=== PATIENT | female | born 1990 | race African-American/Black ===

== ENCOUNTER 2017-05-01 17:17 | Emergency (ER) | payer OTHER ==
[~2017-05-01] VITALS: Ht 172.7 cm; Wt 78.9 kg
[2017-05-01 17:42] VITALS: BP 116/69
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
[2017-05-01] MEDS ORDERED: CYCL10TA2 PO (18:52)
[2017-05-01] MEDS ORDERED: NAPR500T8 PO (18:52)
[2017-05-01] MEDS ORDERED: IBUPROFEN 600 MG TABLET. PO ONE (19:15)
== END 2017-05-01 19:07 | disposition home or self-care (01) ==
LOC: ER 17:17
DX: S16.1XXA Strain of muscle, fascia and tendon at neck level, initial encounter (principal); V43.52XA Car driver injured in collision with other type car in traffic accident, initial encounter; Y93.I9 Activity, other involving external motion; Y92.410 Unspecified street and highway as the place of occurrence of the external cause; Y99.8 Other external cause status
CPT/HCPCS: 72125; 81025; 99284-25